=== PATIENT | female | born 1965 | race Caucasian/White ===

== ENCOUNTER 2021-06-23 12:58 | Emergency (ER) | payer OTHER ==
[~2021-06-23 12:58] MED LIST: ACETAMINOPHEN500 M1 PO; ATIVAN1 MG PO; CIPRO500 MG PO; DILANTIN100 MG PO; IMODIUM2 MG PO; METRONIDAZOLE500 MG PO
[2021-06-23 13:44] LABS: BASOPHIL 0.5 % (0-2); EOSINOPHIL 1.1 % (0-5); HCT 44.7 % (37.0-47.0); HGB 15.2 g/dl (12.5-16.0); LYMPHOCYTE 25.5 % (15-48); MCH 32.7 pg (25.0-31.0); MCV 96.1 fL (78.0-100.0); MONOCYTE 6.5 % (0-12); MPV 9.9 fL (6.0-9.5); NEUTROPHIL 66.3 % (41-80); NRBC 0; PLT 170 K/uL (150-400); RBC 4.65 M/uL (4.20-5.40); RDW 12.5 % (11.5-14.0); WBC 7.4 K/uL (4.0-10.5)
[2021-06-23 13:52] LABS: PROTHROMBIN TIME 12.6 SECONDS (11.8-13.4); PTT 25.2 SECONDS (24.4-34.7)
[2021-06-23 14:00] LABS: ALBUMIN 3.9 g/dL (3.4-5.0); BILIRUBIN - TOTAL 0.2 mg/dL (0.2-1.0); BUN/CREAT RATIO (CALC) 15.6 RATIO; CREATININE 0.64 mg/dL (0.51-0.95); DILANTIN (PHENYTOIN) 13.2 ug/mL (10.0-20.0); GLOBULIN (CALCULATION) 3.8 g/dL; POTASSIUM 3.9 mmol/L (3.5-5.1); TOTAL PROTEIN 7.7 g/dL (6.4-8.2)
[2021-06-23] MEDS ORDERED: MEDROL 4MG DOSEP4 MG PO (17:04)
== END 2021-06-23 17:30 | disposition home or self-care (01) ==
LOC: FER 12:58
PROVIDERS: Nurse Practitioner Family
DX: G89.29 Other chronic pain (principal); Z28.310 Unvaccinated for COVID-19
CPT/HCPCS: 36415; 70450; 80053; 80185; 85025; 85610; 85730; 87040; J0780; J1200; J1885; J2405

== ENCOUNTER 2021-10-24 17:04 | Emergency (ER) | payer OTHER ==
[~2021-10-24 17:04] MED LIST changes: +MEDROL 4MG DOSEP4 MG PO
[2021-10-24 18:36] LABS: BASOPHIL 0.5 % (0-2); EOSINOPHIL 1.1 % (0-5); HCT 41.6 % (37.0-47.0); HGB 14.3 g/dl (12.5-16.0); LYMPHOCYTE 22.9 % (15-48); MCH 32.9 pg (25.0-31.0); MCHC 34.4 g/dL (32.0-36.0); MCV 95.9 fL (78.0-100.0); MONOCYTE 9.6 % (0-12); NEUTROPHIL 65.6 % (41-80); NRBC 0; PLT 180 K/uL (150-400); RBC 4.34 M/uL (4.20-5.40); RDW 12.8 % (11.5-14.0); WBC 7.9 K/uL (4.0-10.5)
[2021-10-24 19:00] LABS: ALBUMIN 3.7 g/dL (3.4-5.0); BILIRUBIN - TOTAL 0.3 mg/dL (0.2-1.0); BUN/CREAT RATIO (CALC) 11.9 RATIO; CREATININE 0.59 mg/dL (0.51-0.95); GLOBULIN (CALCULATION) 2.9 g/dL; POTASSIUM 3.7 mmol/L (3.5-5.1); TOTAL PROTEIN 6.6 g/dL (6.4-8.2)
[2021-10-24] MEDS ORDERED: MEDROL 4MG DOSEP4 MG PO (20:40)
[2021-10-24] MEDS ORDERED: ZPAK PO (20:40)
== END 2021-10-24 21:01 | disposition home or self-care (01) ==
LOC: FER 17:04
PROVIDERS: Emergency Medicine
DX: J18.9 Pneumonia, unspecified organism (principal); F17.200 Nicotine dependence, unspecified, uncomplicated; Z20.822 Contact with and (suspected) exposure to COVID-19; Z28.310 Unvaccinated for COVID-19
CPT/HCPCS: 36415; 71045; 80053; 83880; 84484; 85025; 85379; 93005; J0696; J2930; U0002